=== PATIENT | male | born 1970 | race African-American/Black ===

== ENCOUNTER 2016-11-08 04:43 | Emergency (ER) | payer OTHER ==
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
== END 2016-11-08 08:50 | disposition home or self-care (01) ==
LOC: ER 04:43
DX: S70.01XA Contusion of right hip, initial encounter (principal); V43.52XA Car driver injured in collision with other type car in traffic accident, initial encounter